=== PATIENT | female | born 1985 | race Caucasian/White ===

== ENCOUNTER → 2018-02-01 15:58 | Outpatient (REF) | payer SELFPAY | LOC: LAB 15:58 | PROVIDERS: Visit Provider Dermatology | DX: L02.212 Cutaneous abscess of back [any part, except buttock and flank] (principal) | CPT/HCPCS: 87070; 87075; 87077; 87147; 87186; 87205 ==

== ENCOUNTER 2018-02-18 14:47 | Emergency (ER) | payer OTHER, SELFPAY ==
[2018-02-18 14:55] VITALS: BP 122/82; PULSE 69; RESP 15; O2SAT 98; BMI 32.3
--- NOTE | 2018-02-18 15:12 | ED.GENADULT ---
HPI - General Adult General Chief complaint: Blood/Body fluid exposure Stated complaint: NEEDLE STICK Time Seen by Provider: 02/18/18 15:12 History of Present Illness HPI narrative: Patient is a 32-year-old female who presents after body fluid exposure from a needle stick in left index finger from the [place]. The source does not have no hepatitis or HIV. Patient says he has a shins are up to date Related Data Allergies Allergy/AdvReac Type Severity Reaction Status Date / Time bupropion [From Wellbutrin] Allergy Verified 02/18/18 14:55 varenicline [From Chantix] Allergy Verified 02/18/18 14:55 Review of Systems Review of Systems GENERAL: Denies chills,fever HEENT: Denies throat pain RESPIRATORY: Denies dyspnea, cough, wheezing CARDIOVASCULAR: Denies chest pain, palpitations GASTROINTESTINAL: Denies nausea, vomiting MUSCULOSKELETAL: Denies extremity pain, injury SKIN: No rash, no laceration, no pruritus NEUROLOGIC: Denies weakness, dizziness, headache, numbness 8 point review of systems is negative except for those stated above and HPI PFSH Social History Smoking Status: Current every day smoker Exam Initial Vital Signs Initial Vital Signs: Vital Signs Pulse Rate 69 02/18/18 14:55 Respiratory Rate 15 02/18/18 14:55 Blood Pressure 122/82 H 02/18/18 14:55 Pulse Oximetry 98 02/18/18 14:55 GENERAL: Well-appearing, well-nourished and in no acute distress. CARDIOVASCULAR: peripheral pulses in tact, cap refill <2 sec RESPIRATORY: No respiratory distress, speaks in full sentences without difficulty EXTREMITIES: Normal range of motion, no clubbing or edema. Neurovascularly intact NEUROLOGICAL: Cranial nerves II through XII grossly intact. Normal gait and speech. SKIN: Warm, dry, no petechiae, no rashes or lesions. Needle puncture left index finger bleeding controlled with bandage. Course Orders Ordered: ED Orders 02/18/18 15:57 Alanine Aminotransferase Stat HIV 1 and 2 Antibody Stat Hepatitis C Virus Antibody Stat Vital Signs - 8 hr 02/18/18 14:55 02/18/18 16:16 Pulse Rate 69 75 Respiratory Rate 15 18 Blood Pressure 122/82 H 127/75 H Pulse Oximetry 98 100 Medical Decision Making MDM Narrative Medical decision making narrative: Lab Data Lab Results 02/18/18 Range/Units 15:57 ALT 38 (9-52) IU/L Discharge Plan Departure Patient Disposition: Home, Self-Care Clinical Impression: Puncture wound of left middle finger, Employee exposure to body fluids Discharge Date/Time: 02/18/18 16:16 Interventions: ED Discharge Assessment Last Done: 02/18/18 16:16 Instructions: DI for Accidental Exposure to Body Fluids Activity Restrictions/Additional Instructions: *You have been diagnosed with body fluid exposure *What to do: The should follow up with [facility] and nurse coordinator *Continue to take medications as directed *Follow up with your primary care provider in 2-3 days *Return to ER if you should have any new, worsening or concerning symptoms
[2018-02-18 16:16] VITALS: BP 127/75; PULSE 75; RESP 18; O2SAT 100
[2018-02-18 16:24] LABS: Alanine Aminotransferase 38 IU/L (9-52)
[2018-02-18 19:55] LABS: HIV 1 and 2 Antibody NEGATIVE (NEGATIVE); Hep C Virus Ab w/Reflex Quant NEGATIVE s/c (NEGATIVE)
[2018-02-20 15:03] LABS: Hepatitis B Surf Ab Qualitativ Reactive (Nonreactive)
== END 2018-02-18 16:16 | disposition home or self-care (01) ==
PROVIDERS: Emergency Provider Emergency Medicine
DX: S61.239A Puncture wound without foreign body of unspecified finger without damage to nail, initial encounter (principal); W46.0XXA Contact with hypodermic needle, initial encounter; Y99.0 Civilian activity done for income or pay; Z77.21 Contact with and (suspected) exposure to potentially hazardous body fluids
CPT/HCPCS: 36415; 84460; 86703; 86706; 86803; 99282; 99283

== ENCOUNTER → 2018-06-28 15:00 | Outpatient (CLI) | payer BC, SELFPAY | DX: Z23 Encounter for immunization (principal) | CPT/HCPCS: 90471; 90686 ==